=== PATIENT | female | born 1955 | race Caucasian/White ===

== ENCOUNTER 2020-12-11 07:18 | Day surgery (SDC) | payer OTHER, SELFPAY ==
[~2020-12-11] VITALS: Ht 160 cm; Wt 77.1 kg
[2020-12-11 10:20] VITALS: BP_SYST 112
[2020-12-11] MEDS ORDERED: DIPHENHYDRAMINE INJ 50 MG/ML VIAL ONE (14:21)
[2020-12-11] MEDS ORDERED: MIDAZOLAM HCL 5 MG/5 ML VIAL ONE (14:22)
== END 2020-12-11 10:15 | disposition home or self-care (01) ==
LOC: SDS 07:18 → SMU 07:19 → SDS 10:15
PROVIDERS: ATTEND Internal Medicine
DX: M50.122 Cervical disc disorder at C5-C6 level with radiculopathy (principal); M48.02 Spinal stenosis, cervical region; I10 Essential (primary) hypertension; G20 Parkinson's disease; K76.0 Fatty (change of) liver, not elsewhere classified; G89.4 Chronic pain syndrome; Z20.828 Contact with and (suspected) exposure to other viral communicable diseases
CPT/HCPCS: 62321; 99152; J2250; U0003; 76000; J1200